=== PATIENT | male | born 1945 | race Caucasian/White ===

== ENCOUNTER 2016-11-12 13:40 | Day surgery (SDC) | payer MEDICARE, OTHER ==
[2016-11-21] MEDS ORDERED: CRESTOR40 MG PO (16:08)
[2016-11-21] MEDS ORDERED: METHOC500B PO (16:10)
[2016-11-21] MEDS ORDERED: REQUIP1 PO (16:10)
[2016-11-21] MEDS ORDERED: NORCO1 TAB PO (16:11)
[2016-11-21] MEDS ORDERED: ASA5GR PO (16:11)
[2016-11-21] MEDS ORDERED: CELEBREX2 PO (16:11)
[2016-11-21] MEDS ORDERED: IRBESARTAN/HCTZ PO (16:30)
== END 2016-11-12 23:59 | disposition home or self-care (01) ==
LOC: DMU 13:40
DX: R13.10 Dysphagia, unspecified (principal); Z53.9 Procedure and treatment not carried out, unspecified reason
CPT/HCPCS: A9270-GY

== ENCOUNTER 2016-12-10 10:14 | Day surgery (SDC) | payer MEDICARE, OTHER ==
[~2016-12-10 10:14] MED LIST: ASA5GR PO; CELEBREX2 PO; CRESTOR40 MG PO; IRBESARTAN/HCTZ PO; METHOC500B PO; NORCO1 TAB PO; REQUIP1 PO
== END 2016-12-10 23:59 | disposition home health service (06) ==
LOC: DMU 10:14
PROVIDERS: Internal Medicine Gastroenterology
PROC: 4A1B88Z Monitoring of Gastrointestinal Motility, Via Natural or Artificial Opening Endoscopic (ICD-10-PCS; principal; 2016-12-10 10:30)
DX: R13.10 Dysphagia, unspecified (principal); Z98.890 Other specified postprocedural states
CPT/HCPCS: A9270-GY; C1894